=== PATIENT | female | born 1970 | race African-American/Black ===

== ENCOUNTER 2023-04-08 14:54 | Emergency (ER) | payer OTHER ==
[~2023-04-08] VITALS: Ht 162.6 cm; Wt 69.0 kg
[2023-04-08 15:08] VITALS: O2SAT 99
[2023-04-08 16:57] LABS: BASOPHILS % 0.7 % (0.0-2.0); EOSINOPHILS % 0.4 % (0.0-5.0); HEMATOCRIT. 38.6 % (36.0-48.0); HEMOGLOBIN. 12.5 g/dL (12.0-16.0); LYMPHOCYTES % 52.3 % (20.0-50.0); MEAN CORPUSCULAR HEMOGLOBIN 28.6 pg (28.0-32.0); MEAN PLATELET VOLUME 11.7 fl (7.4-10.4); MONOCYTES % 5.3 % (2.0-8.0); NEUTROPHILS % 41.3 % (40.0-76.0); PLATELET 107 x1000/uL (130-400); RED BLOOD CELL COUNT 4.38 mill/uL (4.2-5.4); RED CELL DISTRIBUTION WIDTH 13.3 % (11.6-14.6)
[2023-04-08 17:02] LABS: CHLORIDE 108 mEq/L (98-107)
[2023-04-08 20:45] VITALS: BP 198/110; PULSE 59; RESP 14; TEMP 98.6
[2023-04-12] MEDS ORDERED: ASPI-1406 MT (13:00)
[2023-04-12] MEDS ORDERED: NIFE-32 PO (13:00)
[2023-04-12] MEDS ORDERED: LIP40 MT (13:00)
[2023-04-12] MEDS ORDERED: HYDR-4135 PO (13:00)
[2023-04-12] MEDS ORDERED: CLOP-31 MT (13:00)
== END 2023-04-08 20:51 | disposition home or self-care (01) ==
LOC: ER 14:54
DX: R06.02 Shortness of breath (principal)
CPT/HCPCS: 36415; 80053; 82962; 85025; 99285